=== PATIENT | male | born 1965 | race Hispanic/Latino ===

== ENCOUNTER 2019-08-05 19:09 | Emergency (ER) | payer SELFPAY ==
--- NOTE | 2019-08-05 20:32 | RAD ---
Exam: Left forearm 2 views: HISTORY: Injury while trimming trees, FINDINGS: Comminuted distal radial fracture involving the meta-epiphysis with extension intra-articularly as we ll as slightly comminuted fracture of the tip of the styloid process. There is associated soft tissue swelling. Very slight dorsal foreshortening. IMPRESSION: Comminuted distal radial fracture with intra-articular extension as well as a minimally comminuted di stal ulnar styloid process fracture.
[2019-08-05] MEDS ORDERED: Ketorolac Tromethamine 30 MG/ML VIAL ONE (21:34)
[2019-08-05] MEDS ORDERED: HYDROcodone/Acetaminophen 5/325 mg Tablet ONE (21:34)
== END 2019-08-05 22:18 | disposition home or self-care (01) ==
LOC: ERS 19:09
DX: S52.572A Other intraarticular fracture of lower end of left radius, initial encounter for closed fracture (principal); S52.612A Displaced fracture of left ulna styloid process, initial encounter for closed fracture; F17.210 Nicotine dependence, cigarettes, uncomplicated; I10 Essential (primary) hypertension; Z79.899 Other long term (current) drug therapy; Z79.82 Long term (current) use of aspirin; W11.XXXA Fall on and from ladder, initial encounter
CPT/HCPCS: 29125; 96372; J1885

== ENCOUNTER 2022-10-28 08:37 | Emergency (ER) | payer OTHER, SELFPAY ==
[2022-10-28] MEDS ORDERED: Ketorolac Tromethamine 30 MG/ML VIAL ONE (09:15)
[2022-10-28] MEDS ORDERED: Cyclobenzaprine 10 MG TAB ONE (09:15)
== END 2022-10-28 10:05 | disposition home or self-care (01) ==
LOC: ERS 08:37
DX: S16.1XXA Strain of muscle, fascia and tendon at neck level, initial encounter (principal); S39.012A Strain of muscle, fascia and tendon of lower back, initial encounter; S76.011A Strain of muscle, fascia and tendon of right hip, initial encounter; I10 Essential (primary) hypertension; F17.210 Nicotine dependence, cigarettes, uncomplicated; V43.52XA Car driver injured in collision with other type car in traffic accident, initial encounter
CPT/HCPCS: 71045; 72125; 72131; 96372; J1885